=== PATIENT | male | born 1965 | race Native Hawaiian/Other Pacific Islander ===

== ENCOUNTER 2017-02-04 09:34 | Emergency (ER) | payer OTHER ==
[~2017-02-04] VITALS: Ht 177.8 cm; Wt 104.3 kg
[~2017-02-04 09:34] MED LIST: ACET-689 PO; ALPR0.5T24 PO; PRINIVIL10 MG OR
[2017-02-04 09:45] VITALS: TEMP 98
[2017-02-04 11:22] VITALS: BP 184/98
== END 2017-02-04 11:22 | disposition home or self-care (01) ==
LOC: ED 09:34
DX: M17.11 Unilateral primary osteoarthritis, right knee (principal); M25.552 Pain in left hip
CPT/HCPCS: 96372; 99282; J1885

== ENCOUNTER 2017-02-18 09:11 | Emergency (ER) | payer OTHER ==
[~2017-02-18] VITALS: Ht 177.8 cm; Wt 108.9 kg
[2017-02-18 09:59] VITALS: BP 154/96; TEMP 97.2
== END 2017-02-18 10:08 | disposition home or self-care (01) ==
LOC: ED 09:11
DX: M17.11 Unilateral primary osteoarthritis, right knee (principal)
CPT/HCPCS: 96372; 99283; J1885

== ENCOUNTER 2017-06-05 10:03 | Emergency (ER) | payer OTHER ==
[~2017-06-05] VITALS: Ht 177.8 cm; Wt 102.1 kg
[2017-06-05 10:16] VITALS: BP 139/90; TEMP 97.5
== END 2017-06-05 10:38 | disposition home or self-care (01) ==
LOC: ED 10:03
DX: M25.552 Pain in left hip (principal); M25.562 Pain in left knee; M25.561 Pain in right knee
CPT/HCPCS: 99281

== ENCOUNTER 2017-06-08 12:04 | Emergency (ER) | payer OTHER ==
[~2017-06-08] VITALS: Ht 180.3 cm; Wt 102.1 kg
[2017-06-08 12:15] VITALS: BP 162/94; TEMP 97.2
[2017-06-08] MEDS ORDERED: PERCOCET1 TA3 PO (12:26)
[2017-06-08] MEDS ORDERED: BACLOFEN10 MG PO (12:27)
[2017-06-08 13:06] LABS: POTASSIUM 4.5 mmol/L (3.6-5.2)
[2017-06-08 13:10] LABS: PLATELET COUNT 286 K/uL (142-355)
== END 2017-06-08 13:50 | disposition home or self-care (01) ==
LOC: ED 12:04
DX: S70.02XA Contusion of left hip, initial encounter (principal); S00.83XA Contusion of other part of head, initial encounter; S20.212A Contusion of left front wall of thorax, initial encounter; S20.211A Contusion of right front wall of thorax, initial encounter; I99.8 Other disorder of circulatory system; Z98.890 Other specified postprocedural states; D72.828 Other elevated white blood cell count; R51 Headache; W17.89XA Other fall from one level to another, initial encounter; Y92.098 Other place in other non-institutional residence as the place of occurrence of the external cause
CPT/HCPCS: 80053; 85027; 99283

== ENCOUNTER 2017-08-02 11:24 | Outpatient (CLI) | payer OTHER ==
[~2017-08-02 11:24] MED LIST changes: +BACLOFEN10 MG PO; +PERCOCET1 TA3 PO
== END 2017-08-02 11:37 | disposition short-term general hospital (02) ==
LOC: AMB 11:24
DX: S20.219A Contusion of unspecified front wall of thorax, initial encounter (principal); V49.9XXA Car occupant (driver) (passenger) injured in unspecified traffic accident, initial encounter; Y93.89 Activity, other specified; Y92.89 Other specified places as the place of occurrence of the external cause; Y99.8 Other external cause status
CPT/HCPCS: A0425; A0427

== ENCOUNTER 2017-08-02 11:40 | Inpatient (IN) | payer OTHER ==
[~2017-08-02] VITALS: Ht 167.6 cm; Wt 102.5 kg
[2017-08-02] VITALS (24 sets, daily range): BP systolic 116–220; BP diastolic 87–171; TEMP 98.7; Ht 167.6 cm; Wt 102.5 kg
[2017-08-02 12:11] LABS: PLATELET COUNT 289 K/uL (142-355)
[2017-08-02 12:16] LABS: POTASSIUM 3.9 mmol/L (3.6-5.2)
[2017-08-03] VITALS (59 sets, daily range): BP systolic 105–170; BP diastolic 70–111; TEMP 98.6–102.6
[2017-08-03 05:29] LABS: PLATELET COUNT 225 K/uL (142-355)
[2017-08-03 06:04] LABS: POTASSIUM 3.6 mmol/L (3.6-5.2)
[2017-08-04] VITALS (24 sets, daily range): BP systolic 103–167; BP diastolic 63–100; TEMP 98.4–100.6
[2017-08-04 06:17] LABS: PLATELET COUNT 246 K/uL (142-355)
[2017-08-04 06:34] LABS: POTASSIUM 3.9 mmol/L (3.6-5.2)
[2017-08-05] VITALS (12 sets, daily range): BP systolic 112–146; BP diastolic 71–93; TEMP 98.8–100.1
[2017-08-05 05:39] LABS: PLATELET COUNT 245 K/uL (142-355)
[2017-08-05 05:59] LABS: POTASSIUM 3.6 mmol/L (3.6-5.2)
[2017-08-06] VITALS: BP 109/87; TEMP 98.7
[2017-08-06 04:00] VITALS: BP 138/88; TEMP 99.1
[2017-08-06 06:00] LABS: PLATELET COUNT 245 K/uL (142-355)
[2017-08-06 06:14] LABS: POTASSIUM 3.6 mmol/L (3.6-5.2)
[2017-08-06 08:00] VITALS: BP 150/94; TEMP 98.9
== END 2017-08-06 10:00 | disposition home or self-care (01) | DRG 605 ==
LOC: ED 11:40 → ICU 14:20 → MED/SURG 22:10 → ICU 08-03 06:59 → MED/SURG 08-05 15:20
PROVIDERS: Emergency Medicine; ADMIT Internal Medicine
PROC: 5A1935Z Respiratory Ventilation, Less than 24 Consecutive Hours (ICD-10-PCS; principal; 2017-08-02)
PROC: 0BH17EZ Insertion of Endotracheal Airway into Trachea, Via Natural or Artificial Opening (ICD-10-PCS; 2017-08-02)
DX: S20.219A Contusion of unspecified front wall of thorax, initial encounter (principal); R07.89 Other chest pain; R41.82 Altered mental status, unspecified; V49.3XXA Car occupant (driver) (passenger) injured in unspecified nontraffic accident, initial encounter; Y93.89 Activity, other specified; Y92.89 Other specified places as the place of occurrence of the external cause; Y99.8 Other external cause status; F41.8 Other specified anxiety disorders; I10 Essential (primary) hypertension; G89.4 Chronic pain syndrome
CPT/HCPCS: 31500; 36415; 36591; 36600; 51702; 80053; 80307; 80320; 81000; 82550; 82805; 83605; 84484; 85014; 85018; 85027; 87040; 94002; 94003; 94640; 94664; 94760; 96372; 96374; 96375; 99285; J0330; J0360; J0696; J1170; J1630; J2060; J2250; J2543; J2930; J3486; J3490; Q9963

== ENCOUNTER 2017-08-11 12:10 | Inpatient (IN) | payer OTHER ==
[~2017-08-11] VITALS: Ht 177.8 cm; Wt 108.1 kg
[2017-08-11 12:15] VITALS: BP 134/96; TEMP 98.7
[2017-08-11] MEDS ORDERED: PERCOCET1 TA3 PO (12:28)
[2017-08-11 12:57] LABS: PLATELET COUNT 457 K/uL (142-355)
[2017-08-11 13:06] LABS: POTASSIUM 3.8 mmol/L (3.6-5.2)
[2017-08-11 19:00] VITALS: BP 130/90
[2017-08-11 20:00] VITALS: BP 140/90; TEMP 99.3
[2017-08-11 20:43] VITALS: BP 122/95; TEMP 99.3; Ht 177.8 cm; Wt 108.1 kg
[2017-08-11 21:00] VITALS: BP 133/93
[2017-08-11 22:00] VITALS: BP 128/90
[2017-08-12] VITALS (26 sets, daily range): BP systolic 120–171; BP diastolic 63–119; TEMP 98–101.1
[2017-08-12 06:13] LABS: PLATELET COUNT 369 K/uL (142-355)
[2017-08-12 06:30] LABS: POTASSIUM 3.9 mmol/L (3.6-5.2)
[2017-08-13] VITALS (11 sets, daily range): BP systolic 122–154; BP diastolic 74–96; TEMP 98.4–100
[2017-08-13 06:48] LABS: POTASSIUM 4.3 mmol/L (3.6-5.2)
[2017-08-13 06:58] LABS: PLATELET COUNT 397 K/uL (142-355)
[2017-08-14] VITALS (7 sets, daily range): BP systolic 131–163; BP diastolic 80–99; TEMP 97.8–99.2
[2017-08-15 03:46] VITALS: BP 133/80; TEMP 98.8
[2017-08-15 05:42] LABS: PLATELET COUNT 472 K/uL (142-355)
[2017-08-15 05:57] LABS: POTASSIUM 3.9 mmol/L (3.6-5.2)
[2017-08-15 08:00] VITALS: BP 168/88; TEMP 98.9
[2017-08-15 12:07] VITALS: BP 152/98; TEMP 98.5
[2017-08-15 16:05] VITALS: TEMP 98
[2017-08-15 17:00] VITALS: BP 165/105; TEMP 98
[2017-08-15 20:00] VITALS: BP 150/98; TEMP 98.2
[2017-08-16] VITALS: BP 165/98; TEMP 98.6
[2017-08-16 04:00] VITALS: BP 150/92; TEMP 98.2
[2017-08-16 08:00] VITALS: BP 148/92; TEMP 98.3
[2017-08-16 12:00] VITALS: BP 145/96; TEMP 99.2
[2017-08-16 16:00] VITALS: BP 140/89; TEMP 99.5
[2017-08-16 20:26] VITALS: BP 140/78; BP 147/94; TEMP 98.2; TEMP 98.3
[2017-08-17] VITALS: BP 164/98; TEMP 98.1
[2017-08-17 04:00] VITALS: BP 164/88; TEMP 98.4
[2017-08-17 05:20] LABS: PLATELET COUNT 525 K/uL (142-355)
[2017-08-17 08:00] VITALS: BP 141/97; TEMP 98.4
[2017-08-17 12:00] VITALS: BP 157/96; TEMP 98.6
== END 2017-08-17 13:10 | disposition home or self-care (01) | DRG 329 ==
LOC: ED 12:10 → ICU 17:20 → MED/SURG 08-13 12:40 → ICU 08-13 13:33 → MED/SURG 08-13 13:33
PROVIDERS: Internal Medicine; Student in an Organized Health Care Education/Training Program
PROC: 0DB80ZZ Excision of Small Intestine, Open Approach (ICD-10-PCS; principal; 2017-08-12)
DX: S36.438A Laceration of other part of small intestine, initial encounter (principal); K55.029 Acute infarction of small intestine, extent unspecified; E87.1 Hypo-osmolality and hyponatremia; S32.018A Other fracture of first lumbar vertebra, initial encounter for closed fracture; I10 Essential (primary) hypertension; G89.4 Chronic pain syndrome; F41.8 Other specified anxiety disorders
CPT/HCPCS: 36415; 74022; 80048; 80053; 80202; 82962; 83605; 83735; 85027; 93005; 94664; 94760; 96361; 96365; 96372; 99284; J0180; J0132; J0330; J0690; J1100; J1170; J1335; J1644; J1885; J2001; J2060; J2250; J2300; J2405; J2543; J2550; J2704; J2710; J2765; J3010; J3370; J3490; Q9963

== ENCOUNTER 2017-09-04 17:31 | Emergency (ER) | payer OTHER ==
[~2017-09-04] VITALS: Ht 177.8 cm; Wt 98.9 kg
[2017-09-04 18:14] LABS: PLATELET COUNT 328 K/uL (142-355)
[2017-09-04 18:19] LABS: POTASSIUM 3.9 mmol/L (3.6-5.2)
[2017-09-04 21:12] VITALS: BP 123/73; TEMP 99.1
== END 2017-09-04 21:13 | disposition home or self-care (01) ==
LOC: ED 17:31
DX: R10.84 Generalized abdominal pain (principal); Z98.890 Other specified postprocedural states
CPT/HCPCS: 36415; 80053; 85027; 96372; 99283; J0696; Q9963

== ENCOUNTER 2017-11-24 00:45 | Emergency (ER) | payer OTHER ==
[~2017-11-24] VITALS: Ht 167.6 cm; Wt 102.5 kg
[2017-11-24 01:39] LABS: PLATELET COUNT 224 K/uL (142-355)
[2017-11-24 02:09] LABS: POTASSIUM 4.1 mmol/L (3.6-5.2)
[2017-11-24 05:21] VITALS: BP 138/79; TEMP 98.6
== END 2017-11-24 05:21 | disposition short-term general hospital (02) ==
LOC: ED 00:45
PROC: 0D9670Z Drainage of Stomach with Drainage Device, Via Natural or Artificial Opening (ICD-10-PCS; principal; 2017-11-24)
DX: K56.50 Intestinal adhesions [bands], unspecified as to partial versus complete obstruction (principal)
CPT/HCPCS: 36415; 43754; 80053; 83605; 85027; 96361; 96365; 96374; 96375; 99285; J1885; J2060; J2405; Q9963

== ENCOUNTER 2017-12-30 03:21 | Emergency (ER) | payer OTHER ==
[~2017-12-30] VITALS: Ht 177.8 cm; Wt 99.8 kg
[2017-12-30] MEDS ORDERED: LISI20TA11 PO (03:31)
[2017-12-30 04:34] LABS: PLATELET COUNT 208 K/uL (142-355)
[2017-12-30 04:47] LABS: POTASSIUM 3.5 mmol/L (3.6-5.2)
[2017-12-30 08:14] VITALS: BP 152/99; TEMP 97.9
== END 2017-12-30 08:15 | disposition home or self-care (01) ==
LOC: ED 03:21
PROVIDERS: Family Medicine
DX: R11.0 Nausea (principal); K43.9 Ventral hernia without obstruction or gangrene
CPT/HCPCS: 36415; 80053; 81000; 85027; 96374; 99284; J2405; J3490; Q9963

== ENCOUNTER 2018-01-08 08:19 | Outpatient (CLI) | payer OTHER ==
[~2018-01-08 08:19] MED LIST changes: +LISI20TA11 PO
== END 2018-01-08 19:48 | disposition home or self-care (01) ==
LOC: CT 08:19
DX: K43.2 Incisional hernia without obstruction or gangrene (principal)
CPT/HCPCS: Q9963

== ENCOUNTER 2018-06-07 19:28 | Observation (INO) | payer OTHER ==
[~2018-06-07] VITALS: Ht 177.8 cm; Wt 101.8 kg
[2018-06-07 19:47] VITALS: BP 136/97; TEMP 97.8
[2018-06-07 20:36] LABS: PLATELET COUNT 328 K/uL (142-355)
[2018-06-07 20:46] LABS: POTASSIUM 4.3 mmol/L (3.6-5.2)
[2018-06-07 23:46] VITALS: BP 167/84; TEMP 98.1
[2018-06-08 01:50] VITALS: BP 134/79; TEMP 98.2; Ht 177.8 cm; Wt 101.8 kg
[2018-06-08 04:00] VITALS: BP 134/79; TEMP 99
[2018-06-08 08:00] VITALS: BP 125/84; TEMP 98.1
[2018-06-08 12:00] VITALS: BP 135/83; TEMP 97.9
[2018-06-08 16:00] VITALS: BP 116/76; TEMP 99.6
[2018-06-08 20:01] VITALS: BP 113/66; TEMP 98.9
[2018-06-09] VITALS: BP 135/81; TEMP 98.7
[2018-06-09 04:00] VITALS: BP 116/73; TEMP 98.8
[2018-06-09 08:00] VITALS: BP 144/87; TEMP 97.2
[2018-06-09 12:00] VITALS: BP 174/98; TEMP 98
[2018-06-09 16:00] VITALS: BP 142/85; TEMP 98.1
[2018-06-09 20:00] VITALS: BP 150/89; TEMP 98.2
[2018-06-10] VITALS: BP 136/89; TEMP 97.6
[2018-06-10 04:00] VITALS: BP 138/89; TEMP 97.7
[2018-06-10 08:00] VITALS: BP 137/95; TEMP 97.7
== END 2018-06-10 10:55 | disposition home or self-care (01) ==
LOC: ED 19:28 → MED/SURG 06-08 00:15
PROVIDERS: Emergency Medicine; ADMIT Internal Medicine
DX: K56.690 Other partial intestinal obstruction (principal); I10 Essential (primary) hypertension; G89.4 Chronic pain syndrome
CPT/HCPCS: 36415; 43754; 74022; 80053; 82150; 83690; 85027; 96365; 96366; 96372; 96374; 96375; 99220; 99284; G0378; J0500; J0696; J2060; J2175; J2405; J2550; Q9963

== ENCOUNTER 2018-06-30 12:35 | Outpatient (CLI) | payer OTHER | END 2018-06-30 19:41 | disposition home or self-care (01) | LOC: LABW 12:35 | DX: R79.89 Other specified abnormal findings of blood chemistry (principal) | CPT/HCPCS: 36415; 84402; 84403 ==

== ENCOUNTER 2018-07-10 04:44 | Emergency (ER) | payer OTHER ==
[~2018-07-10] VITALS: Ht 177.8 cm; Wt 108.9 kg
[2018-07-10 04:55] VITALS: TEMP 97
[2018-07-10 05:29] LABS: PLATELET COUNT 230 K/uL (142-355)
[2018-07-10 05:45] LABS: POTASSIUM 3.9 mmol/L (3.6-5.2)
[2018-07-10 09:05] VITALS: BP 144/82
== END 2018-07-10 09:25 | disposition home or self-care (01) ==
LOC: ED 04:44
PROVIDERS: Emergency Medicine
DX: R10.84 Generalized abdominal pain (principal)
CPT/HCPCS: 36415; 80053; 80320; 82150; 83690; 85027; 96360; 96372; 99283; J1885

== ENCOUNTER 2018-09-27 04:53 | Inpatient (IN) | payer OTHER ==
[~2018-09-27] VITALS: Ht 177.8 cm; Wt 106.7 kg
[2018-09-27 05:10] VITALS: BP 90/55; TEMP 99.3
[2018-09-27 06:21] LABS: POTASSIUM 3.7 mmol/L (3.6-5.2)
[2018-09-27 06:30] LABS: PLATELET COUNT 175 K/uL (142-355)
[2018-09-27 08:00] VITALS: BP 90/48
[2018-09-27 10:00] VITALS: BP 94/56
[2018-09-27 11:30] VITALS: BP 103/66; TEMP 99; Ht 177.8 cm; Wt 106.7 kg
[2018-09-27 16:00] VITALS: BP 104/66; TEMP 98.2
[2018-09-27 16:41] LABS: PLATELET COUNT 170 K/uL (142-355)
[2018-09-27 16:50] LABS: POTASSIUM 3.8 mmol/L (3.6-5.2)
[2018-09-27 20:00] VITALS: BP 101/65; TEMP 97.7
[2018-09-28 00:05] VITALS: BP 125/79; TEMP 97.6
[2018-09-28 04:00] VITALS: BP 179/89; TEMP 97.9
[2018-09-28 08:00] VITALS: BP 113/67; TEMP 98
[2018-09-28 12:00] VITALS: BP 161/94; TEMP 98.7
[2018-09-28 16:00] VITALS: BP 149/86; TEMP 98.6
[2018-09-28 19:45] VITALS: BP 144/87; TEMP 98.3
[2018-09-29] VITALS: BP 139/91; TEMP 97.4
[2018-09-29 04:00] VITALS: BP 159/93; TEMP 98.4
[2018-09-29 08:00] VITALS: BP 121/71; TEMP 97.4
== END 2018-09-29 11:08 | disposition home or self-care (01) | DRG 699 ==
LOC: ED 04:53 → MED/SURG 09:20
PROVIDERS: Family Medicine; Student in an Organized Health Care Education/Training Program; ADMIT Internal Medicine
DX: N28.9 Disorder of kidney and ureter, unspecified (principal); E87.1 Hypo-osmolality and hyponatremia; K59.09 Other constipation; N40.0 Benign prostatic hyperplasia without lower urinary tract symptoms; J43.8 Other emphysema; I10 Essential (primary) hypertension; K66.0 Peritoneal adhesions (postprocedural) (postinfection)
CPT/HCPCS: 36415; 80048; 80053; 81000; 83605; 83690; 83735; 85027; 87040; 93005; 96360; 96361; 96365; 96375; 99284; J1650; J1885; J2060; J2405; J2930; J7040

== ENCOUNTER 2018-10-02 09:58 | Emergency (ER) | payer OTHER ==
[~2018-10-02] VITALS: Ht 177.8 cm; Wt 106.6 kg
[2018-10-02 10:49] LABS: PLATELET COUNT 372 K/uL (142-355)
[2018-10-02 10:57] LABS: POTASSIUM 3.5 mmol/L (3.6-5.2)
[2018-10-02 12:15] VITALS: BP 135/75; TEMP 99.5
== END 2018-10-02 12:15 | disposition home or self-care (01) ==
LOC: ED 09:58
PROVIDERS: Emergency Medicine
DX: J18.9 Pneumonia, unspecified organism (principal); R50.9 Fever, unspecified; F17.210 Nicotine dependence, cigarettes, uncomplicated
CPT/HCPCS: 36415; 80053; 81000; 83605; 85007; 85027; 87040; 87502; 96360; 96361; 96365; 99284; J0696

== ENCOUNTER 2018-10-07 13:39 | Outpatient (CLI) | payer OTHER ==
[2018-10-07] MEDS ORDERED: TAMS0.4C PO (23:12)
[2018-10-07] MEDS ORDERED: 904272561 PO (23:13)
== END 2018-10-07 13:55 | disposition short-term general hospital (02) ==
LOC: AMB 13:39
DX: R41.82 Altered mental status, unspecified (principal); R56.9 Unspecified convulsions
CPT/HCPCS: A0425; A0427

== ENCOUNTER 2018-10-07 13:56 | Inpatient (IN) | payer OTHER ==
[~2018-10-07] VITALS: Ht 177.8 cm; Wt 97.2 kg
[2018-10-07] VITALS (9 sets, daily range): BP systolic 103–170; BP diastolic 66–98; TEMP 97.8–98.5; Ht 177.8 cm; Wt 97.2 kg
[2018-10-07 14:56] LABS: PLATELET COUNT 386 K/uL (142-355)
[2018-10-07 15:44] LABS: POTASSIUM 5.4 mmol/L (3.6-5.2)
[2018-10-07] MEDS ORDERED: TAMS0.4C PO (23:12)
[2018-10-07] MEDS ORDERED: 904272561 PO (23:13)
[2018-10-08] VITALS: BP 142/82; TEMP 98.3
[2018-10-08 04:00] VITALS: BP 121/88
[2018-10-08 08:00] VITALS: BP 180/95; TEMP 97.8
[2018-10-08 12:00] VITALS: BP 176/89; TEMP 97.6
[2018-10-08 16:00] VITALS: BP 164/97; TEMP 98
[2018-10-08 20:00] VITALS: BP 177/96; TEMP 97.5
[2018-10-09] VITALS: BP 173/99; TEMP 98.9
[2018-10-09 04:00] VITALS: BP 168/88; TEMP 97.9
[2018-10-09 06:13] LABS: PLATELET COUNT 479 K/uL (142-355); POTASSIUM 4.3 mmol/L (3.6-5.2)
[2018-10-09 08:00] VITALS: BP 170/99; TEMP 98
== END 2018-10-09 09:30 | disposition home or self-care (01) | DRG 918 ==
LOC: ED 13:56 → MED/SURG 19:30
PROVIDERS: Family Medicine; ADMIT Internal Medicine
DX: T42.4X1A Poisoning by benzodiazepines, accidental (unintentional), initial encounter (principal); T43.621A Poisoning by amphetamines, accidental (unintentional), initial encounter; R41.82 Altered mental status, unspecified; I10 Essential (primary) hypertension; K66.0 Peritoneal adhesions (postprocedural) (postinfection); R10.9 Unspecified abdominal pain; M54.89 Other dorsalgia; J43.9 Emphysema, unspecified; N40.0 Benign prostatic hyperplasia without lower urinary tract symptoms
CPT/HCPCS: 36415; 80053; 80307; 81000; 82550; 84484; 85027; 93005; 96365; 96374; 99284; J1885; J2060; J3486; J3490

== ENCOUNTER 2018-11-21 04:23 | Emergency (ER) | payer OTHER ==
[~2018-11-21] VITALS: Ht 177.8 cm; Wt 97.1 kg
[~2018-11-21 04:23] MED LIST changes: +904272561 PO; +TAMS0.4C PO
[2018-11-21 04:30] VITALS: TEMP 97.5
[2018-11-21 05:35] LABS: PLATELET COUNT 332 K/uL (142-355)
[2018-11-21 05:54] LABS: SODIUM 141 mmol/L (136-145)
[2018-11-21 10:30] VITALS: BP 112/78
== END 2018-11-21 13:45 | disposition short-term general hospital (02) ==
LOC: ED 04:23
PROVIDERS: Emergency Medicine
PROC: 0DH67UZ Insertion of Feeding Device into Stomach, Via Natural or Artificial Opening (ICD-10-PCS; principal; 2018-11-21)
DX: K56.609 Unspecified intestinal obstruction, unspecified as to partial versus complete obstruction (principal); Z98.890 Other specified postprocedural states
CPT/HCPCS: 43754; 80053; 80307; 81000; 82150; 83605; 83690; 84484; 85027; 96361; 96365; 96375; 96376; 99284; J1885; J2270; J2405; J2543

== ENCOUNTER 2019-07-01 19:12 | Emergency (ER) | payer OTHER ==
[~2019-07-01] VITALS: Ht 177.8 cm; Wt 97.1 kg
[2019-07-01 20:15] VITALS: BP 112/72; TEMP 97.7
== END 2019-07-01 20:17 | disposition home or self-care (01) ==
LOC: ED 19:12
PROC: 3E1B78Z Irrigation of Ear using Irrigating Substance, Via Natural or Artificial Opening (ICD-10-PCS; principal; 2019-07-01)
DX: H61.21 Impacted cerumen, right ear (principal)
CPT/HCPCS: 99283

== ENCOUNTER 2019-07-07 04:46 | Emergency (ER) | payer OTHER ==
[~2019-07-07] VITALS: Ht 177.8 cm; Wt 95.3 kg
[2019-07-07 06:00] VITALS: BP 168/83; TEMP 98.8
== END 2019-07-07 06:00 | disposition home or self-care (01) ==
LOC: ED 04:46
DX: L23.89 Allergic contact dermatitis due to other agents (principal)
CPT/HCPCS: 96372; 99283; J1020; J1200

== ENCOUNTER 2020-01-01 13:45 | Outpatient (CLI) | payer OTHER | END 2020-01-01 20:39 | disposition home or self-care (01) | LOC: US 13:45 | DX: R22.1 Localized swelling, mass and lump, neck (principal); T78.40XA Allergy, unspecified, initial encounter ==

== ENCOUNTER 2020-08-07 23:10 | Emergency (ER) | payer OTHER ==
[~2020-08-07] VITALS: Ht 162.6 cm; Wt 108.9 kg
[2020-08-07 23:50] VITALS: BP 127/61; TEMP 98.6
== END 2020-08-07 23:50 | disposition home or self-care (01) ==
LOC: ED 23:10
PROC: 3E1B78Z Irrigation of Ear using Irrigating Substance, Via Natural or Artificial Opening (ICD-10-PCS; principal; 2020-08-07)
DX: H61.22 Impacted cerumen, left ear (principal)
CPT/HCPCS: 99282

== ENCOUNTER 2021-04-19 01:00 | Emergency (ER) | payer OTHER ==
[~2021-04-19] VITALS: Ht 162.6 cm; Wt 108.9 kg
[2021-04-19 01:05] VITALS: BP 139/60; TEMP 99.4
== END 2021-04-19 01:38 | disposition home or self-care (01) ==
LOC: ED 01:00
DX: H61.23 Impacted cerumen, bilateral (principal)
CPT/HCPCS: 99282

== ENCOUNTER 2021-10-05 08:23 | Outpatient (CLI) | payer OTHER | END 2021-10-05 19:39 | disposition home or self-care (01) | LOC: MRI 08:23 | PROVIDERS: ATTEND Pain Medicine Interventional Pain Medicine | DX: M54.12 Radiculopathy, cervical region (principal) ==

== ENCOUNTER 2021-12-31 09:44 | Emergency (ER) | payer OTHER ==
[~2021-12-31] VITALS: Ht 162.6 cm; Wt 108.9 kg
[2021-12-31 09:53] VITALS: BP 125/62; TEMP 96.7
== END 2021-12-31 10:43 | disposition home or self-care (01) ==
LOC: ED 09:44
PROC: 0HQFXZZ Repair Right Hand Skin, External Approach (ICD-10-PCS; principal; 2021-12-31)
DX: S61.421A Laceration with foreign body of right hand, initial encounter (principal); S61.011A Laceration without foreign body of right thumb without damage to nail, initial encounter; W26.0XXA Contact with knife, initial encounter; Y92.89 Other specified places as the place of occurrence of the external cause
CPT/HCPCS: 90471; 90715; 99283